=== PATIENT | male | born 1960 | race African-American/Black ===

== ENCOUNTER 2019-03-27 07:43 | Outpatient (CLI) | payer BC | END 2019-03-27 23:59 | disposition home or self-care (01) | LOC: CVU 07:43 | PROVIDERS: ATTEND Internal Medicine Cardiovascular Disease | DX: I08.1 Rheumatic disorders of both mitral and tricuspid valves (principal); I42.9 Cardiomyopathy, unspecified; I12.9 Hypertensive chronic kidney disease with stage 1 through stage 4 chronic kidney disease, or unspecified chronic kidney disease; N18.3 Chronic kidney disease, stage 3 (moderate) | CPT/HCPCS: 93306; 93356; 93975 ==